=== PATIENT | female | born 1980 | race Caucasian/White ===

== ENCOUNTER 2016-08-12 20:30 | Emergency (ER) | payer BC, OTHER ==
[~2016-08-12] VITALS: Ht 167.6 cm; Wt 59.0 kg
[2016-08-12 20:30] VITALS: BP_SYST 112
--- NOTE | 2016-08-12 22:38 | NUR ---
Patient to [facility] for evaluation. Side rails up. Report given to DAISHA ESPINOZA.
--- NOTE | 2016-08-12 22:41 | NUR ---
Pt c/o sore throat (discomfort, does not rate pain). Feels throat discomfort is anxiety related. Has had this for 4 to 5 days. Few days ago she had stiff neck.
--- NOTE | 2016-08-12 23:50 | NUR ---
ER at bedside examining patient.
[2016-08-13 00:27] VITALS: BP_SYST 112
--- NOTE | 2016-08-13 00:27 | NUR ---
Patient given written and verbal discharge instructions and verbalizes understanding. ER MD discussed with patient the results and treatment provided. G Patient in stable condition. ID arm band removed. Rx of Prednisone given. Patient educated on pain management and to follow up with PMD 2-3 days. Pain Scale 0/10 Opportunity for questions provided and answered.
== END 2016-08-13 00:27 | disposition home or self-care (01) ==
LOC: SED 20:30
DX: J02.8 Acute pharyngitis due to other specified organisms (principal); B97.89 Other viral agents as the cause of diseases classified elsewhere
CPT/HCPCS: 99283